=== PATIENT | male | born 1990 ===

== ENCOUNTER 2017-11-15 20:52 | Emergency (ER) | payer OTHER ==
[2017-11-15 20:58] VITALS: BP 146/86; PULSE 63; RESP 20; TEMP 98.1; O2SAT 100
--- NOTE | 2017-11-15 22:20 | C.PDOC ---
History Of Present Illness 27 year old male presents to the ED c/o dizziness, pain and swelling to his nose. Patient reports he collided with the head of another player while playing basketball earlier today. Patient reports that after the impact he has moderate nose bleed from both nostrils. Patient denies LOC, headache, blurry vision, nausea, vomit. Time Seen by Provider: 11/15/17 21:07 Chief Complaint (Nursing): Dizziness/Lightheaded History Per: Patient History/Exam Limitations: no limitations Onset/Duration Of Symptoms: Hrs Current Symptoms Are (Timing): Still Present Number Of Syncopal Episodes: 1 Activity At Onset Of Symptoms: Exertional Activity Associated Symptoms Preceding Syncopal Episode: No Predromal Symptoms (Sudden Onset) Seizure Or Post-ictal Symptoms: None Fall Associated With With Symptoms: No Recent travel outside of the [place]: No Additional History Per: Patient Past Medical History Reviewed: Historical Data, Nursing Documentation, Vital Signs Vital Signs: Last Vital Signs Temp 98.1 F 11/15/17 20:55 Pulse 63 11/15/17 20:55 Resp 20 11/15/17 22:57 BP 146/86 11/15/17 20:55 Pulse Ox 100 11/15/17 22:45 - Medical History PMH: No Chronic Diseases Surgical History: No Surg Hx Family History: States: Unknown Family Hx - Social History Hx Alcohol Use: No Hx Substance Use: No - Immunization History Hx Tetanus Toxoid Vaccination: No Hx Influenza Vaccination: No Hx Pneumococcal Vaccination: No Review Of Systems Constitutional: Negative for: Fever, Chills Eyes: Negative for: Vision Change ENT: Positive for: Nose Pain, Nose Discharge Respiratory: Negative for: Cough, Shortness of Breath Gastrointestinal: Negative for: Nausea, Vomiting Skin: Negative for: Rash Neurological: Positive for: Dizziness. Negative for: Headache Physical Exam - Physical Exam Appears: Non-toxic, No Acute Distress Skin: Normal Color, Warm, Dry Head: Atraumatic, Normacephalic Eye(s): bilateral: Normal Inspection, PERRL, EOMI Ear(s): Bilateral: Normal Nose: No Epistaxis, No Deformity, Tenderness (nasal bridge), No Septal Hematoma , Other (swelling nasal area. no bony tenderness) Oral Mucosa: Moist Neck: Normal ROM, No Midline Cervical Tenderness, Supple Chest: Symmetrical Extremity: Normal ROM, No Tenderness, No Swelling Neurological/Psych: Oriented x3, Normal Speech, Normal Cognition, Normal Cranial Nerves, Normal Motor, Normal Sensation Gait: Steady ED Course And Treatment O2 Sat by Pulse Oximetry: 100 (ON RA) Pulse Ox Interpretation: Normal - Other Rad Nasal Bones X-Ray X-Ray: Interpreted by Me, Viewed By Me Interpretation: Fracture of the nasal bridge seen,nondisplaced Progress Note: Plan: - Nasal bones X-ray. - Motrin 800 mg PO. On reassessment , patient is resting comfortably, and is in no acute distress. Patient was instructed to follow up with ENT in 1-2 days for further evaluation. Reevaluation Time: 22:40 Reassessment Condition: Improved Disposition Counseled Patient/Family Regarding: Diagnosis, Need For Followup, Rx Given - Disposition Referrals: Ryan Barahona MD [Staff Provider] - Disposition: HOME/ ROUTINE Disposition Time: 22:41 Condition: STABLE Additional Instructions: Please follow up with PMD Take medications as directed Return to ER if worse Prescriptions: Ibuprofen [Motrin] 600 mg PO Q6H #24 tab Instructions: Nose Fracture (DC) Forms: [employer] (Moroccan) - Clinical Impression Clinical Impression: Nasal bone fracture - PA / [employer] INSPECTOR / Resident Statement MD/DO has reviewed & agrees with the documentation as recorded. - Scribe Statement The provider has reviewed the documentation as recorded by the Scribe Praveen Ziegler All medical record entries made by the Scribe were at my direction and personally dictated by me. I have reviewed the chart and agree that the record accurately reflects my personal performance of the history, physical exam, medical decision making, and the department course for this patient. I have also personally directed, reviewed, and agree with the discharge instructions and disposition.
--- NOTE | 2017-11-16 08:48 | RAD ---
PROCEDURE: Radiographs of Nasal Bones HISTORY: trauma, nose swelling, head butted, nose bleed COMPARISON: None available. TECHNIQUE: Frontal and lateral radiographs of the nasal bones. FINDINGS: Bilateral minimally depressed nasal bone fractures are evident. No destructive lesion. IMPRESSION: Bilateral nasal bone fracture.
== END 2017-11-15 22:57 | disposition home or self-care (01) ==
LOC: C.ER 20:52
DX: S02.2XXA Fracture of nasal bones, initial encounter for closed fracture (principal); W51.XXXA Accidental striking against or bumped into by another person, initial encounter; Y93.67 Activity, basketball